=== PATIENT | male | born 1965 | race African-American/Black ===

== ENCOUNTER → 2020-01-13 | Outpatient (CLI) | payer OTHER ==
--- NOTE | 2020-01-13 14:15 | Diagnostic Imaging Report ---
MRI of the right ankle without contrast. History: Ankle pain. Decreased range of motion. Trauma. Pain not responding to conservative management. Sprain of calcaneofibular ligament Technique: Utilizing a high-field 1.5T magnet, the following sequences were acquired: PD FS in all 3 planes with additional axial PD. Comparison: None. Findings: Achilles tendon and plantar fascia: The Achilles tendon and plantar fascia are normal. Cartilage and bone: Negative for osteochondral lesion of the tibiotalar and subtalar joints. Negative for fracture, osteonecrosis, or dislocation. Bone marrow edema in the anterior lateral cuboid and adjacent proximal fifth metatarsal likely stress related and/or due to a contusion. Bone marrow edema in the medial malleolus and in the adjacent talus and calcaneus likely stress related and/or due to a contusion. No cortical fracture is seen. Medial ankle: The deltoid ligament complex is intact. The medial flexor tendons are normal. There is a physiologic amount of fluid within the tendon sheath of FHL. Lateral ankle: High-grade tear of the anterior talofibular and calcaneofibular ligaments. The posterior talofibular ligaments are intact. Small effusion and mild synovitis in the anterior lateral gutter. The syndesmotic ligaments are intact. The peroneal tendons are normal. Anterior ankle: The anterior extensor tendons are normal. Other findings: Small tibiotalar joint effusion and mild synovitis. Impression: High-grade tear of the anterior talofibular and calcaneofibular ligaments. The posterior talofibular ligaments are intact. Small effusion and mild synovitis in the anterior lateral gutter. Bone marrow edema in the anterior lateral cuboid and adjacent proximal fifth metatarsal likely stress related and/or due to a contusion. Bone marrow edema in the medial malleolus and in the adjacent talus and calcaneus likely stress related and/or due to a contusion. No cortical fracture is seen. Signed by: Dr. Alberto White M.D. on 01/13/2020 2:11 PM
== END ==
LOC: MRI 10:26
PROVIDERS: ATTEND Family Medicine
DX: S93.411D Sprain of calcaneofibular ligament of right ankle, subsequent encounter (principal)